=== PATIENT | female | born 1985 | race Two or more races ===

== ENCOUNTER 2019-01-31 12:17 | Emergency (ER) | payer SELFPAY ==
[~2019-01-31] VITALS: Ht 162.6 cm; Wt 54.4 kg
[2019-01-31 12:35] VITALS: BP 116/65
[2019-01-31 12:39] LABS: BILIRUBIN,URINE NEGATIVE (NEG); CLARITY,URINE CLOUDY; NITRITE,URINE NEGATIVE (NEG); PROTEIN,URINE 100 mg/dL (NEG-TRACE); UROBILINOGEN,URINE 0.2 mg/dL (0.2 mg/dL)
[2019-01-31 12:42] LABS: COLOR,URINE ORANGE
[2019-01-31 12:45] LABS: BACTERIA,URINE MODERATE /HPF (0-FEW); RBC,URINE FOBS /HPF (0-2); WBC,URINE TNTC /HPF (0-4)
[2019-01-31] MEDS ORDERED: CEPH-264 PO (13:44)
--- NOTE | 2019-01-31 13:44 | PHYS DOC ---
Past Medical History Past Medical History: No Pertinent History Past Surgical History: , Tubal ligation Alcohol Use: None Drug Use: None Adult General Chief Complaint Chief Complaint: PAIN ON URINATION [facility] Patient is a 33 year old female who presents to the emergency department with complaints of suprapubic pain with urination that began today. She also reports concern of an irregular vaginal odor. She rates her pain a 4 out of 10 on the pain scale, she denies any alleviating and increases with urination. ROS Patient denies any fever, cough, shortness of breath, sore throat, ear pain, nausea, vomiting, diarrhea, or back pain. Patient denies any vaginal bleeding, or irregular vaginal discharge. She reports concerns of possible sexually transmitted infection, stating that she is not aware of any known risk but "you never know." All other ROS is neg unless otherwise noted in HPI. Review of Systems Review of Systems See Above Allergies Allergies Allergies Coded Allergies Type Severity Reaction Last Updated Verified No Known Drug Allergies 01/31/19 No Physical Exam Physical Exam See Above Constitutional: Well developed, well nourished, no acute distress, non-toxic appearance. [] HENT: Normocephalic, atraumatic, bilateral external ears normal, oropharynx moist, no oral exudates, nose normal. [] Eyes: PERRLA, EOMI, conjunctiva normal, no discharge. [] Neck: Normal range of motion, no stridor. [] Lungs & Thorax: Respirations even and unlabored, no retractions, no respiratory distress Pelvic Exam: Heel Seat Flap Stapler present Pam ERT Abdomen: Nontender, soft External Genitalia: Normal Skin Speculum: Normal vaginal mucosa, normal cervical discharge Bimanual: No adnexal masses or tenderness, No CMT Skin: Warm, dry, no erythema, no rash. [] Back: No CVA tenderness. [] Extremities: No tenderness, no cyanosis, no clubbing, ROM intact, no edema. [] Neurologic: Alert and oriented X 3, no focal deficits noted. [] Psychologic: Affect normal, judgement normal, mood normal. [] Current Patient Data Vital Signs Vital Signs Date Time Temp Pulse Resp B/P (MAP) Pulse Ox O2 Delivery O2 Flow Rate FiO2 01/31/19 12:35 98.3 67 16 116/65 (82) 99 Room Air 98.3 Lab Values Laboratory Tests Test 01/31/19 12:30 01/31/19 12:34 Urine Collection Type Unknown Urine Color [place] Urine Clarity Cloudy Urine pH 7.0 Urine Specific Hurricane <=1.005 Urine Protein 100 mg/dL (NEG-TRACE) Urine Glucose (UA) Negative mg/dL (NEG) Urine Ketones (Stick) Trace mg/dL (NEG) Urine Blood Large (NEG) Urine Nitrite Negative (NEG) Urine Bilirubin Negative (NEG) Urine Urobilinogen Dipstick 0.2 mg/dL (0.2 mg/dL) Urine Leukocyte Esterase Large (NEG) Urine RBC Fobs /HPF (0-2) Urine WBC Tntc /HPF (0-4) Urine Transitional Epithelial Cells Few /LPF Urine Bacteria Moderate /HPF (0-FEW) POC Urine HCG, Qualitative Hcg negative (Negative) Microbiology 01/31/19 Wet Prep - Final, Complete EKG EKG [] Radiology/Procedures Radiology/Procedures [] Course & Med Decision Making Course & Med Decision Making Pertinent Labs and Imaging studies reviewed. (See chart for details) dx: UTI Diarrhea and chlamydia testing are pending. UA is concerning for urinary tract infection. Patient declined prophylactic treatment for STI, pelvic exam was rather benign, normal findings on wet mount. Advised patient to call for results in 2 days to be sure that gonorrhea and chlamydia testing are negative. Patient encouraged to follow-up with her [employer] as needed. Prescription written for Keflex 500 mg by mouth twice a day �7 days. Instructed patient to avoid bladder irritants and increase clear fluids. Patient verbalized an understanding of home care, medications, follow-up, and return to ED instructions and was in agreement with the plan of care. [] Dragon Disclaimer Dragon Disclaimer This electronic medical record was generated, in whole or in part, using a voice recognition dictation system. Departure Departure Impression: Primary Impression: UTI (urinary tract infection) Disposition: 01 HOME, SELF-CARE Condition: STABLE Referrals: UNKNOWN PCP NAME (PCP) Patient Instructions: Urinary Tract Infection, [id number] Additional Instructions: Fill prescription(s) and use as directed. Avoid bladder irritants such as ca ffeine, carbonation, and spicy foods. Increase clear fluids. Follow up with your primary care doctor if symptoms persist, return to the ER if symptoms worsen. Scripts Cephalexin (KEFLEX) 500 Mg Capsule 1 CAP PO BID for 7 Days, #14 CAP 0 Refills Prov: DONNA POTTER [employer] 01/31/19 Problem Qualifiers Primary Impression: UTI (urinary tract infection) Urinary tract infection type: site unspecified Hematuria presence: with hematuria Qualified Codes: N39.0 - Urinary tract infection, site not spec ified; R31.9 - Hematuria, unspecified DONNA P[employer]TER [employer] Jan 31, 2019 13:44
[2019-02-01 17:10] LABS: GC PROBE Negative (Negative)
== END 2019-01-31 13:56 | disposition home or self-care (01) ==
LOC: ER 12:17
DX: N39.0 Urinary tract infection, site not specified (principal); R31.9 Hematuria, unspecified; Z98.51 Tubal ligation status
CPT/HCPCS: 81001; 81025; 87086; 87491; 87591; 99284; Q0111